=== PATIENT | male | born 1970 | race Caucasian/White ===

== ENCOUNTER → 2017-10-29 | Outpatient (CLI) | payer BC ==
--- NOTE | 2017-10-29 11:52 | ECHOS ---
STRESS ECHOCARDIOGRAM DATE OF SERVICE: 10/29/2017 INDICATIONS: Atrial fibrillation. MEDICATIONS: Metoprolol. BASELINE HEART RATE: 78 BASELINE BLOOD PRESSURE: 100/65 MAXIMUM HEART RATE: 160 MAXIMUM BLOOD PRESSURE: 148/60 85% MPHR: 149 100% MPHR: 175 METS: 12.1 MAXIMUM STAGE REACHED: IV TOTAL EXERCISE TIME: 10:30 CLINICAL INFORMATION: Baseline rhythm is sinus mechanism, rate of 78, normal axis and intervals. Normal electrocardiogram. Baseline blood pressure 100/65 mmHg. Patient exercised on Bakari protocol for 10 minutes 30 seconds reaching peak rate on 160 beats per minute, which is equal to 91% maximum predicted heart rate. Peak blood pressure 148/60 mmHg. The test was terminated secondary to fatigue. There was no chest pain. Electrocardiograph monitoring revealed no evidence of diagnostic ischemic ST deviation. Baseline echocardiogram revealed normal systolic function. At peak exercise, there was normal wall motion augmentation with no hypokinesis or dyskinesis. CONCLUSION: 1. Good exercise tolerance with normal electrocardiograph response to exercise. 2. Normal stress echocardiogram with no evidence of stress-induced ischemia. MMODL / IJN: [id number] / MTDD
== END | disposition home or self-care (01) ==
LOC: RADNMMAIN 09:43
PROVIDERS: ATTEND Family Medicine
DX: I48.91 Unspecified atrial fibrillation (principal)
CPT/HCPCS: 93017; 93350

== ENCOUNTER 2018-07-18 03:46 | Inpatient (IN) | payer BC ==
[2018-07-18] MEDS ORDERED: MIDAZOLAM 2 MG/2 ML VIAL IVP ONE (04:40)
[2018-07-18] MEDS ORDERED: LIDOCAINE 1% INJ 10MG/ML (20 ML MDV) SQ ONE (04:42)
[2018-07-18] MEDS ORDERED: fentaNYL (PF) 50 MCG/ML 2 ML AMP IV ONE (04:46)
[2018-07-18] MEDS ORDERED: IV FLUID CONTINUATION 950 ML IV ONE (04:47)
[2018-07-18] MEDS ORDERED: BIVALIRUDIN BOLUS 250 MG/50 ML IV ONE (04:55)
[2018-07-18] MEDS ORDERED: BIVALIRUDIN 250 MG in SODIUM CHLORIDE 0.9% 35 ML IV ONE (05:00)
[2018-07-18] MEDS ORDERED: IOPAMIDOL-370 125ML BTL INJ ONE (05:13)
[2018-07-18] MEDS ORDERED: BIVALIRUDIN 250 MG in SODIUM CHLORIDE 0.9% 50 ML IV ONE (05:33)
[2018-07-18] MEDS ORDERED: NITROGLYCERIN 1000MCG/10ML SYRINGE INTRACORON ONE (05:37)
[2018-07-18] MEDS ORDERED: niCARdipine Syringe (1,000 mcg/10 mL) INTRACORON ONE (05:37)
[2018-07-18] MEDS ORDERED: TICAGRELOR 90 MG TAB PO ONE (05:43)
[2018-07-18] MEDS ORDERED: IOPAMIDOL-370 50ML BTL INJ ONE (05:43)
[2018-07-18] MEDS ORDERED: IOPAMIDOL-370 100ML BTL INJ ONE (05:44)
[2018-07-18] MEDS ORDERED: MAG HYDROX/AL HYDROX/SIMETH 30 ML CUP PO PRN (05:52)
[2018-07-18] MEDS ORDERED: RX INFO: IV CONTRAST WAS GIVEN 1 EACH MISC MISCELLANE PRN (05:52)
[2018-07-18] MEDS ORDERED: ATROPINE SULFATE 0.1 MG/ML 10ML SYRINGE IV PRN (05:52)
[2018-07-18] MEDS ORDERED: NITROGLYCERIN SL TABS 0.4 MG TAB SUBLINGUAL PRN (05:52)
[2018-07-18] MEDS ORDERED: ZOLPIDEM 5 MG TAB PO PRN (05:52)
[2018-07-18] MEDS ORDERED: SODIUM CHLORIDE 0.9% 1,000 ML IV SCH (06:00)
--- NOTE | 2018-07-18 06:06 | P.CRDCN ---
History of Present Illness Consult date: 07/18/18 Chief complaint: Chest discomfort History of present illness: This is a 47-year-old gentleman who presented to the emergency room at [facility] with chest discomfort and was diagnosed with acute anterior ST elevation myocardial infarction. The patient was in his usual state of health until last night. He woke up from sleep at 2:00 after midnight complaining of chest discomfort as a pressure across her chest. No associated symptoms of shortness of breath, dizziness, sweating, or syncope. Because the chest discomfort was persistent he decided to go to the emergency room at [facility]. He continues to have a chest discomfort over there and it was about 6/10 in intensity. The EKG revealed sinus rhythm with a [address] segment elevation in the anterior leads. No reciprocal changes noted. Because of the ongoing chest discomfort and the ST changes the patient was transferred emergently to [facility] where he underwent a heart catheterization which revealed what it seems to be plaque rupture in the proximal left anterior descending artery with a large thrombus burden. I did perform an aspiration thrombectomy and I was able to extract significant amount of white clot from the LAD proximally. After that I did perform successful stenting of the LAD. By the end of the procedure, the patient's blood pressure has improved, the EKG changes improved, and the patient was chest pain-free. In terms of past medical history, the patient does have hypertension but he quit taking his metoprolol. 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 He is overall not very compliant. No history of diabetes. The patient does have significant history of smoking where he smoke one pack per day. Beside that he does have significant history of alcohol abuse and as a matter of fact last night he took a six pack of beers Past Medical History Additional Past Medical History / Comment(s): back pain History of Any Multi-Drug Resistant Organisms: None Reported Past Psychological History: No Psychological Hx Reported Smoking Status: Current every day smoker Past Alcohol Use History: Occasional Past Drug Use History: None Reported Medications and Allergies Home Medications Medication Instructions Recorded Confirmed Type Amoxicillin/Potassium Clav 1 tab PO Q12HR #20 tab 05/14/16 Rx [Augmentin 875-125 Tablet] Sulfamethox-Tmp 800-160Mg [Bactrim 2 each PO Q12HR #40 tab 05/14/16 Rx DS 800-160 mg] Allergies Allergy/AdvReac Type Severity Reaction Status Date / Time No Known Allergies Allergy Verified 05/14/16 21:55 Physical Exam Vitals: Intake and Output 07/17/18 07/17/18 07/18/18 14:59 22:59 06:59 Intake Total 35 Balance 35 Intake: IV 35 Other: Weight 102.058 kg - Constitutional General appearance: no acute distress - Respiratory Respiratory: bilateral: CTA - Cardiovascular Rhythm: regular Heart sounds: normal: S1, S2 Results Current Medications Generic Name Dose Route Start Last Admin Trade Name Freq PRN Reason Stop Dose Admin Al Hydroxide/Mg Hydroxide 30 ml 07/18/18 05:52 Maalox PO Q4HR PRN Heartburn Aspirin 81 mg 07/18/18 09:00 Aspirin PO DAILY [facility] Atorvastatin Calcium 80 mg 07/18/18 21:00 Lipitor PO HS [facility] Atropine Sulfate 0.5 mg 07/18/18 05:52 Atropine IV ONCE PRN Symptomatic Bradycardia Sodium Chloride 1,000 mls @ 100 mls/hr 07/18/18 06:00 Saline 0.9% IV 07/18/18 12:01 .Q10H [facility] Lisinopril 2.5 mg 07/18/18 09:00 Zestril PO DAILY [facility] Metoprolol Tartrate 25 mg 07/18/18 09:00 Lopressor PO BID [facility] Miscellaneous Information 1 each 07/18/18 05:52 Rx Info: Iv Contrast Was Given MISCELLANE 07/20/18 05:52 DAILY PRN Per Protocol Nitroglycerin 0.4 mg 07/18/18 05:52 Nitrostat SUBLINGUAL Q5M PRN Chest Pain Ticagrelor 90 mg 07/18/18 09:00 Brilinta PO BID [facility] Zolpidem Tartrate 5 mg 07/18/18 05:52 Ambien PO HS PRN Insomnia Intake and Output 07/17/18 07/17/18 07/18/18 14:59 22:59 06:59 Intake Total 35 Balance 35 Intake: IV 35 Other: Weight 102.058 kg Patient Weight 07/18/18 06:59 Weight 102.058 kg Assessment and Plan Assessment: Assessment #[address] elevation myocardial infarction #2 status post a stenting of the proximal LAD #3 significant history of smoking #4 history of alcohol abuse #5 noncompliance. Plan #1 dual antiplatelet therapy #2 high intensity statin #3 beta brinda as well as ANIL inhibitor #4 echocardiogram was Doppler #5 ICU admission #6 smoking cessation was discussed with him #7 follow-up with the patient. Thank you for allowing us participate in his care and we will continue following up with the patient
[2018-07-18 06:37] LABS: Glucose,Whole Blood 118 mg/dL (75-99)
--- NOTE | 2018-07-18 07:22 | CC ---
CARDIAC CATHETERIZATION REPORT DATE OF SERVICE: 07/18/2018 PERFORMING PHYSICIAN: Omer Melendez MD, Java Mobile Developer. PROCEDURE PERFORMED: 1. Selective right and left coronary angiogram. 2. Intravascular ultrasound IVUS of the left anterior descending artery. 3. An aspiration thrombectomy from the proximal left anterior descending artery. 4. Successful stenting of the proximal LAD using 5.0 x 18 mm bare metal stent with good angiographic results. 5. Left heart catheterization. 6. Left ventriculography. INDICATION: This is a pleasant 47-year-old gentleman with significant history of smoking, presented to the emergency room at [facility] with chest discomfort and the EKG showed acute anterior ST-elevation myocardial infarction. Because of that, an emergent heart catheterization was advised and the patient was transferred to [facility] for that. APPROACH: Right common femoral artery. COMPLICATION: None. LEVEL OF SEDATION: Moderate with sedation length of 67 minutes. PROCEDURE DESCRIPTION: After obtaining an informed consent, the patient was brought to the cardiac organic lab worker. The right common femoral artery was cannulated using micropuncture technique, the micropuncture wire passed easily, then I placed a 6-Romansh sheath in the right common femoral artery. After that, I did selective right and left coronary angiogram using JR4 and JL4 catheters. After that, I did intravascular ultrasound IVUS of the left anterior descending artery and also subsequently stenting of the LAD. Please see a separate paragraph for that. Left heart catheterization and left ventriculography were performed using 6-Romansh pigtail catheter. The procedure was completed without any complication. SELECTIVE CORONARY ANGIOGRAM: 1. The RCA is a large caliber vessel and it is a dominant vessel. The right coronary artery is angiographically normal. It distally bifurcates into PDA and PLV branches, both are angiographically normal. 2. The left main is angiographically normal. It bifurcates into the left circumflex, ramus intermedius and left anterior descending artery. 3. The left circumflex is a large caliber vessel. It is a nondominant vessel. The proximal circumflex is angiographically normal. The mid circumflex is normal and gives rise into a large OM branch which trifurcates into three sub branches. They are angiographically normal and the circumflex continued after that as a small to medium caliber vessel in the AV groove. 4. The ramus intermedius is a medium caliber vessel and seems to be angiographically normal. 5. The LAD: The LAD is a large caliber vessel. The proximal LAD has an area of haziness concerning for clot versus spontaneous dissection. There is a plaque also in the LAD proximally, appeared to be in the range of 70%. The mid LAD is angiographically normal and gives rise into a large diagonal branch which appeared to be angiographically normal and the LAD distally is angiographically normal as well. 6. Intravascular ultrasound and PCI of the LAD. Anticoagulation was initiated using Angiomax. Subsequently I did engage the left main using JL4 guiding catheter. I did wire the LAD using a run-through wire. After that, I did intravascular ultrasound IVUS of the LAD where I did manual pullback with the recording. The intravascular ultrasound showed large clot involving the proximal LAD and reaching almost the left circumflex coronary artery. We did also measure the lumen of the LAD, which was about 5 mm in diameter. At that point, I decided to do an aspiration thrombectomy of the LAD. 1. I advanced the export catheter and I was able to do two rounds of aspiration thrombectomy with the extraction of significant amount of white clot from the LAD proximally. After that, I did direct stenting of the LAD where I did deploy 5.0 x 18 mm bare-metal stent where the stent was positioned under fluoroscopy guidance and deployed under 12 atmospheres for 30 seconds. After that, I did an intravascular ultrasound again of the proximal LAD and I did make sure that the stent was well apposed to the wall. 2. At that point, the procedure and intervention was completed without any complication. The following angiogram showed good angiographic results. LEFT HEART CATHETERIZATION: The left ventricular end-diastolic pressure was 8 mmHg and no gradient was identified across the aortic valve. LEFT VENTRICULOGRAPHY: The left ventriculography was performed in the CHEEK projection and using a power injection. The left ventricular systolic function seems to be mildly impaired with EF between 45% to 50% with mild anterior hypokinesia. CONCLUSION: 1. Acute anterior ST-elevation myocardial infarction in this 47-year-old gentleman with significant history of smoking. 2. Plaque rupture with a large thrombus burden involving the proximal left anterior descending artery. 3. Successful stenting of the proximal left anterior descending artery using 5 mm x 18 mm bare-metal stent with good angiographic results. 4. No residual coronary artery disease involving the right coronary artery, left circumflex, or left main coronary artery. 5. Mildly impaired left ventricular function with ejection fraction between 45% to 50% with mild anterior hypokinesia. POSTPROCEDURE MANAGEMENT: 1. Dual anti-platelet therapy. 2. Aggressive cholesterol control. 3. Anti-ischemic medication. 4. An echocardiogram with Doppler to assess the EF. 5. Smoking cessation. 6. ICU admission. 7. Follow up with the patient. PARTH / KRISSY: [id number] /
--- NOTE | 2018-07-18 07:37 | LTR ---
DATE OF SERVICE: 07/18/2018 RE: Michael Perez Dear Dr. Mansfield; Mr. Michael Perez presented to the emergency room at [facility] with chest discomfort and was diagnosed with acute anterior ST-elevation myocardial infarction. He was transferred emergently to [facility] where he underwent an emergent heart catheterization and was found to have a plaque rupture and thrombus formation involving the proximal LAD. He underwent successful stenting of the LAD with good angiographic results. Thank you for allowing us with his care and please do not hesitate to call if you have any questions or concerns. Sincerely, MD PARTH Barraza / ORIONN: [id number] /
[2018-07-18] MEDS: METOPROLOL TARTRATE 25 MG TAB PO SCH ×2 (08:41→21:42)
[2018-07-18] MEDS: LISINOPRIL 2.5 MG TAB PO SCH (08:41)
[2018-07-18] MEDS: ASPIRIN 81 MG PO SCH (08:42)
[2018-07-18] MEDS: TICAGRELOR 90 MG TAB PO SCH ×2 (08:42→21:42)
--- NOTE | 2018-07-18 09:55 | ECHOF ---
Referral Reason:stemi MEASUREMENTS -------- HEIGHT: 157.5 cm WEIGHT: 102.1 kg BP: IVSd: 1.5 cm (0.6 - 1.1) LVIDd: 4.2 cm (3.9 - 5.3) LVPWd: 1.4 cm (0.6 - 1.1) IVSs: 2.0 cm LVIDs: 3.0 cm LVPWs: 1.5 cm LA Diam: 2.4 cm (2.7 - 3.8) Ao Diam: 3.7 cm (2.0 - 3.7) AV Cusp: 1.9 cm (1.5 - 2.6) LA Diam: 2.6 cm (2.7 - 3.8) MV EXCURSION: 21.866 mm (> 18.000) MV EF SLOPE: 91 mm/s (70 - 150) EPSS: 0.4 cm MV E Hubert: 0.57 m/s MV DecT: 233 ms MV A Hubert: 0.67 m/s MV E/A Ratio: 0.86 RAP: 5.00 mmHg RVSP: 35.57 mmHg FINDINGS -------- Sinus rhythm. This was a technically good study. The left ventricular size is normal. There is moderate concentric left ventricular hypertrophy. O verall left ventricular systolic function is low-normal with, an EF between 50 - 55 %. The right ventricle is normal in size. The left atrial size is normal. The right atrial size is normal. The aortic valve is trileaflet, and appears structurally normal. No aortic stenosis or regurgitation. Mild mitral regurgitation is present. Mild tricuspid regurgitation present. There is mild pulmonary hypertension. The right ventricular systolic pressure, as measured by Doppler, is 35.57mmHg. Trace/mild (physiologic) pulmonic regurgitation. The aortic root size is normal. There is no pericardial effusion. CONCLUSIONS -------- 1. The left ventricular size is normal. 2. There is moderate concentric left ventricular hypertrophy. 3. Overall left ventricular systolic function is low-normal with, an EF between 50 - 55 %. 4. The right ventricle is normal in size. 5. The left atrial size is normal. 6. The right atrial size is normal. 7. The aortic valve is trileaflet, and appears structurally normal. No aortic stenosis or regurgitati on. 8. Mild mitral regurgitation is present. 9. Mild tricuspid regurgitation present. 10. There is mild pulmonary hypertension. 11. The right ventricular systolic pressure, as measured by Doppler, is 35.57mmHg. 12. Trace/mild (physiologic) pulmonic regurgitation. 13. The aortic root size is normal. 14. There is no pericardial effusion. LIFE SCIENCE RESEARCH ASSISTANT: Yesika Somers RDCS
[2018-07-18 11:02] VITALS: BMI 31.4
[2018-07-18] MEDS: ATORVASTATIN 80 MG TAB PO SCH (21:42)
[2018-07-18] MEDS ORDERED: NICOTINE POLACRILEX 2 MG GUM BUCCAL PRN (22:55)
--- NOTE | 2018-07-18 23:25 | HP ---
HISTORY AND PHYSICAL DATE OF ADMISSION: 07/18/2018 DATE OF SERVICE: 07/18/2018. PRESENTING COMPLAINT: Cough, chest pain. HISTORY OF PRESENTING COMPLAINT: This is a pleasant 51-year-old patient who follows with Dr. Mansfield. The patient yesterday came back home from work. Smokes some cigarettes. Had a few beers. Had supper and went and sat on the couch, watching television. Normally gets around 2 o'clock in the morning to go to bed. When he noticed having chest pressure and then pressure and pain going down the left arm. The patient fell out of sorts. Did not feel well. Just felt tired and run down. The patient presented to [facility] ER and was diagnosed to have acute anterior ST-elevation myocardial infarction. The patient was then transferred emergently to [facility] where he underwent cardiac cath and the patient found to have a plaque rupture in the proximal LAD with the large thrombus burden. The patient did have aspiration thrombectomy and stenting of the LAD was carried out. The patient is currently resting in the ICU. and two sons are present. REVIEW OF SYSTEM: CONSTITUTIONAL: The patient has been feeling a bit tired for some time. HEENT none. RESPIRATORY: None. CARDIOVASCULAR as above. GASTROINTESTINAL: Heartburn. GENITOURINARY: None. MUSCULOSKELETAL: None. DERMATOLOGICAL: None. HEMATOLOGICAL: None. LYMPHATICS: None. NEUROLOGICAL: None. PAST MEDICAL HISTORY: Atrial fibrillation, hypertension, back pain. PAST SURGICAL HISTORY: None. SOCIAL HISTORY: Smoked 2 packs a day. Few beers a day. 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 FAMILY HISTORY: Reviewed, noncontributory to presentation. HOME MEDICATIONS: Toprol-XL 25 mg a day. ALLERGIES: None. PHYSICAL EXAMINATION: VITAL SIGNS: Temperature 98.1, pulse 67, respirations 16, blood pressure 130/95, pulse ox 93 percent on room air. GENERAL APPEARANCE: Well built, BMI 31.4. Lying in bed, comfortable. EYES: Pupils are equal. Oral cavity normal. HEENT: External appearance of nose and ears normal. Oral cavity normal. NECK: JVD not raised. Mass not palpable. RESPIRATORY: Effort normal. LUNGS: Slightly decreased breath sounds. CARDIOVASCULAR: 1st and 2nd sounds normal. No edema. ABDOMEN: Soft, nontender. Liver and spleen not palpable. LYMPHATICS: No lymph nodes palpable in the neck and axillae. PSYCHIATRY: Alert and oriented x3. Mood and affect normal. NEUROLOGICAL: Pupils equal. Cranial nerves grossly intact. Power and sensation grossly intact. INVESTIGATIONS: Troponin 1.8, 3.2. EKG tracing from [facility] had reported ST-elevation myocardial infarction. 2D echocardiogram shows EF of 50-55 percent. ASSESSMENT: 1. Acute ST-elevation myocardial infarction followed by clot extraction and stent to the LAD. 2. Obesity BMI 31.4. 3. Chronic nicotine dependence, patient is a cigarette smoker. PLAN: Patient is currently on aspirin, Lipitor, Zestril, Lopressor, Aldactone, Brilinta, Ambien. Care was discussed at length with the patient and . Many questions were answered. They had some questions about interventional will be directed to the weapons officer. Smoke cessation: This also discussed with the patient. The patient will be given a nicotine patch. More than 3 minutes was spent on this aspect of the case. Copy to Dr. Mansfield. PARTH / IJN: [id number] /
[2018-07-19] MEDS: NICOTINE 21MG/24HR PATCH TRANSDERM SCH ×2 (04:02→16:37)
[2018-07-19 05:23] LABS: Basophils # (A) 0.1 k/uL (0-0.2); Basophils % (A) 1 %; Eosinophils # (A) 0.4 k/uL (0-0.7); Eosinophils % (A) 3 %; HCT 51.4 % (39.0-53.0); HGB 16.8 gm/dL (13.0-17.5); Lymphocytes # (A) 2.5 k/uL (1.0-4.8); Lymphocytes % (A) 23 %; MCH 30.8 pg (25.0-35.0); MCHC 32.7 g/dL (31.0-37.0); MCV 94.1 fL (80.0-100.0); Mean Platelet Volume 7.1; Monocytes # (A) 0.9 k/uL (0-1.0); Monocytes % (A) 9 %; Neutrophils # (A) 6.9 k/uL (1.3-7.7); Neutrophils % (A) 62 %; Platelet Count 218 k/uL (150-450); RBC 5.46 m/uL (4.30-5.90); RDW 12.8 % (11.5-15.5)
[2018-07-19 05:41] LABS: Anion Gap 6 mmol/L; Blood Urea Nitrogen 16 mg/dL (9-20); Carbon Dioxide 22 mmol/L (22-30); Chloride 108 mmol/L (98-107); Cholesterol 167 mg/dL (<200); Glucose 106 mg/dL (74-99); HDL Cholesterol 48 mg/dL (40-60); LDL Cholesterol,Calculated 100 mg/dL (0-99); Potassium 4.9 mmol/L (3.5-5.1); Sodium 136 mmol/L (137-145); Triglycerides 96 mg/dL (<150)
[2018-07-19] MEDS: SPIRONOLACTONE 25 MG TAB PO SCH (08:20)
[2018-07-19] MEDS: METOPROLOL TARTRATE 25 MG TAB PO SCH ×2 (08:20→21:18)
[2018-07-19] MEDS: LISINOPRIL 2.5 MG TAB PO SCH (08:20)
[2018-07-19] MEDS: TICAGRELOR 90 MG TAB PO SCH ×2 (08:20→21:18)
[2018-07-19] MEDS: ASPIRIN 81 MG PO SCH (08:20)
--- NOTE | 2018-07-19 10:53 | PN ---
PROGRESS NOTE Mr. Perez is 47-year-old male who presented with an acute episode of chest discomfort, underwent cardiac catheterization and stenting of his proximal LAD. He is doing well this morning. He has mild dyspnea. No chest pain. No dizziness. No palpitation. No nausea. He continues to be on aspirin once a day, Brilinta 90 mg twice a day, Aldactone 25 mg daily, metoprolol tartrate 25 mg twice a day, lisinopril 2.5 mg daily, Lipitor 80 mg daily. PHYSICAL EXAMINATION: Blood pressure 110/70 with a heart rate in the 80s. LUNGS: Clear. HEART: Regular rate and rhythm S1, S2. No S3. No rub. ABDOMEN: Soft, nontender. Right groin no hematoma. Echocardiogram performed revealed ejection fraction of 50% to 55% with mild mitral and tricuspid regurgitation. EKG revealed no acute changes. LAB DATA: Peak troponin 3.25, BUN and creatinine 16 and 0.9, potassium 4.9, hemoglobin of 16.8. His LDL is 100. IMPRESSION: 1. Status post anterior myocardial infarction and stenting of the LAD. 2. Mild hyperlipidemia. RECOMMENDATIONS: We will continue present therapy. He has mild dyspnea that could be related to the Brilinta, but that is unclear. We will continue the present therapy. Increase his level of activity. The patient has a prior history of paroxysmal atrial fibrillation related to his alcohol intake, but he has not been drinking recently. He had a prior history of smoking. If he is stable, he should be able to be transferred to the telemetry floor later on. PARTH / KRISSY: [id number] /
--- NOTE | 2018-07-19 17:26 | PN ---
PROGRESS NOTE DATE OF SERVICE: 07/19/2018. PRESENTING COMPLAINT: Acute myocardial infarction. INTERVAL HISTORY: This is a patient presented with acute ST-elevation myocardial infarction followed by stent to the LAD. Doing better. Has been up in the hallway. No chest pain. No shortness of breath. Tolerating his diet. No arrhythmias present. REVIEW OF SYSTEMS: Done for constitutional, cardiovascular, GI, pulmonary; relevant findings as above. CURRENT MEDICATIONS: Reviewed. PHYSICAL EXAMINATION: VITAL SIGNS: Temperature 98.4, pulse 74, respiratory 18, blood pressure 108/74, pulse ox 95% on room air. GENERAL APPEARANCE: Lying in bed, comfortable. EYES: Pupils equal. Conjunctivae normal. HEENT: External appearance of nose and ears normal. Oral cavity normal. NECK: JVD not raised. Mass not palpable. RESPIRATORY: Effort normal. LUNGS: Slightly decreased breath sounds. CARDIOVASCULAR: 1st and 2nd sounds normal. No edema. ABDOMEN: Soft, nontender. Liver and spleen not palpable. PSYCHIATRY: Alert and oriented x3. Mood and affect normal. INVESTIGATIONS: White count 11, hemoglobin 16.8 potassium 4.9, LDL 100. ASSESSMENT: 1. Acute ST-elevation myocardial infarction followed by clot extraction, stent to the LAD. 2. Obesity BMI 31.4. 3. Chronic nicotine dependence, patient is a cigarette smoker. 4. Paroxysmal atrial fibrillation, currently in sinus rhythm. 5. Hypertensive heart disease. PLAN: Continue current medication and treatment plan and encouraged the patient to ambulate in the hallway. Care was discussed with the patient and . Continue. MMODL / IJN: [id number] /
[2018-07-19] MEDS: ATORVASTATIN 80 MG TAB PO SCH (21:18)
[2018-07-20 06:34] LABS: Anion Gap 7 mmol/L; Blood Urea Nitrogen 21 mg/dL (9-20); Calcium 9.1 mg/dL (8.4-10.2); Carbon Dioxide 21 mmol/L (22-30); Chloride 107 mmol/L (98-107); Glucose 104 mg/dL (74-99); Potassium 5.1 mmol/L (3.5-5.1); Sodium 135 mmol/L (137-145)
[2018-07-20] MEDS: NICOTINE 21MG/24HR PATCH TRANSDERM SCH (09:34)
[2018-07-20] MEDS: ASPIRIN 81 MG PO SCH (09:34)
[2018-07-20] MEDS: TICAGRELOR 90 MG TAB PO SCH (09:34)
[2018-07-20] MEDS: LISINOPRIL 2.5 MG TAB PO SCH (09:34)
[2018-07-20] MEDS: METOPROLOL TARTRATE 25 MG TAB PO SCH (09:34)
[2018-07-20] MEDS: SPIRONOLACTONE 25 MG TAB PO SCH (09:34)
--- NOTE | 2018-07-20 10:41 | PN ---
PROGRESS NOTE Mr. Perez is a 47-year-old male who presented to the hospital with symptoms of chest discomfort, underwent a percutaneous revascularization proximal LAD had evidence of myocardial infarction. He is feeling well this morning. His breathing is stable. He has been ambulating without difficulty denying any dizziness or palpitation. He denies any nausea or vomiting. He continues to be in sinus mechanism. On aspirin once a day, Brilinta 90 mg twice a day, metoprolol tartrate 25 mg twice a day, lisinopril 2.5 mg daily, spironolactone 25 mg daily and Lipitor 80 mg daily. PHYSICAL EXAMINATION: Blood pressure 112/60 with a heart in 60s. LUNGS: Clear. Regular rate and rhythm S1, S2. No S3. No rub. ABDOMEN: Soft nontender. EXTREMITIES: No edema. LAB DATA: BUN and creatinine 21 and 0.92, potassium 5.1. IMPRESSION: 1. Status post acute myocardial infarction involving the LAD, status post stenting of the LAD. 2. Prior history of smoking. 3. Hyperlipidemia. RECOMMENDATIONS: Patient will be discharged home today and follow up with Dr. Melendez in 1 week. The importance of smoking and alcohol cessation were discussed with the patient who is in full understanding and agreement. MMODL / IJN: [id number] /
[2018-07-20 11:44] VITALS: RESP 14
[2018-07-20 13:07] VITALS: BP 108/65; PULSE 72; TEMP 97.9
--- NOTE | 2018-07-20 22:26 | DS ---
DISCHARGE SUMMARY . DATE OF ADMISSION: 07/18/2018. DATE OF DISCHARGE: 07/20/2018. FINAL DIAGNOSES: 1. Acute ST-elevation myocardial infarction clot extraction, stent to the LAD. 2. Obesity BMI 31.4. 3. Chronic nicotine dependence. Patient is a cigarette smoker. 4. Paroxysmal atrial fibrillation, currently in sinus rhythm. 5. Hypertensive heart disease. HOSPITAL COURSE: This patient was transferred from [facility] for an acute ST-elevation myocardial infarction, had intervention done to the LAD. More details in Dr. Melendez's notes. 2D echo showed preserved LV function and LDL was 100. The patient was counseled about smoking and alcohol. Doing much better. Up and about. No cardiac symptoms. PHYSICAL EXAMINATION: VITAL SIGNS: Temperature 97.9, pulse 72, respiratory 14, blood pressure 108/65, pulse ox 94% on room air. Lungs slightly decreased breath sounds. Cardiovascular: 1st and 2nd sounds normal. LABS: BUN 21, creatinine 0.92. LDL 100. CONSULTATION: cloth cutter Dr. Melendez. HOME GO MEDICATIONS: 1. Aspirin 81 mg a day. 2. Lipitor 80 mg q.h.s. 3. Zestril 2.5 mg a day. 4. Lopressor 25 mg p.o. b.i.d. 5. Nicotine 21 mg patch. 6. Nitrostat 0.4 sublingual q.5 p.r.n. 7. Aldactone 25 mg a day. 8. Brilinta 90 mg p.o. b.i.d. FOLLOW UP: Dr. Melendez in 1 week, follow up with Dr. Mansfield in 1 week. The patient is counseled about smoking and alcohol. Copy to Dr. Mansfield. MMODL / IJN: [id number] /
== END 2018-07-20 16:22 | disposition home or self-care (01) | DRG 249 ==
LOC: 2SICU 04:15 → 3SCARD 07-19 10:55
PROVIDERS: ADMIT Hospitalist; ATTEND Hospitalist
PROC: 02C03ZZ Extirpation of Matter from Coronary Artery, One Artery, Percutaneous Approach (ICD-10-PCS; 2018-07-18)
PROC: 4A023N7 Measurement of Cardiac Sampling and Pressure, Left Heart, Percutaneous Approach (ICD-10-PCS; principal; 2018-07-18 04:42)
PROC: 02703DZ Dilation of Coronary Artery, One Artery with Intraluminal Device, Percutaneous Approach (ICD-10-PCS; 2018-07-18 04:42)
PROC: B2111ZZ Fluoroscopy of Multiple Coronary Arteries using Low Osmolar Contrast (ICD-10-PCS; 2018-07-18 04:42)
PROC: B2151ZZ Fluoroscopy of Left Heart using Low Osmolar Contrast (ICD-10-PCS; 2018-07-18 04:42)
DX: I21.09 ST elevation (STEMI) myocardial infarction involving other coronary artery of anterior wall (principal); I11.9 Hypertensive heart disease without heart failure; F17.210 Nicotine dependence, cigarettes, uncomplicated; E66.9 Obesity, unspecified; E78.5 Hyperlipidemia, unspecified; I48.0 Paroxysmal atrial fibrillation; Z68.31 Body mass index [BMI] 31.0-31.9, adult; Z79.82 Long term (current) use of aspirin; Z79.899 Other long term (current) drug therapy; Z91.19 Patient's noncompliance with other medical treatment and regimen; T44.7X6A Underdosing of beta-adrenoreceptor antagonists, initial encounter; Z91.128 Patient's intentional underdosing of medication regimen for other reason; Z71.41 Alcohol abuse counseling and surveillance of alcoholic; Z71.6 Tobacco abuse counseling; I25.10 Atherosclerotic heart disease of native coronary artery without angina pectoris; I25.83 Coronary atherosclerosis due to lipid rich plaque; F10.10 Alcohol abuse, uncomplicated; M54.9 Dorsalgia, unspecified
CPT/HCPCS: 80048; 80061; 84132; 84484; 85025; 93306

== ENCOUNTER → 2018-12-25 | Outpatient (CLI) | payer BC ==
--- NOTE | 2018-12-26 08:42 | US ---
EXAMINATION TYPE: US venous doppler duplex LE RT DATE OF EXAM: 12/25/2018 6:05 PM COMPARISON: US 2017 CLINICAL HISTORY: R60.0 edema of lower extremity. Swelling right leg x 1 day. Patient injured right k nee 1 week ago. Hx superficial thrombosis right leg. Patient on blood thinners. SIDE PERFORMED: Right TECHNIQUE: The lower extremity deep venous system is examined utilizing real time linear array sonog rizwan with graded compression, doppler sonography and color-flow sonography. VESSELS IMAGED: External Iliac Vein (EIV) Common Femoral Vein Deep Femoral Vein Greater Saphenous Vein * Femoral Vein Popliteal Vein Small Saphenous Vein * Proximal Calf Veins (* superficial vessels) Right Leg: No evidence of DVT in the right lower extremity. IMPRESSION: 1. No diagnostic evidence of DVT as visualized.
== END ==
LOC: RADUSMAIN 17:06
PROVIDERS: ATTEND Family Medicine
DX: R60.0 Localized edema (principal)

== ENCOUNTER → 2019-01-23 | Outpatient (CLI) | payer BC ==
--- NOTE | 2019-01-28 14:59 | P.ARTDOP ---
Arterial Doppler LOWER EXTREMITY ARTERIAL DOPPLER: DATE OF SERVICE: 01/23/2019 Reason for study: Bilateral leg pain. Doppler waveforms: Multiphasic bilaterally throughout. Pulse volume recording: []. Pressure gradients: None. Ankle-brachial indices: Greater than 1 bilaterally. Toe pressures: [] on the right, [] on the left Impression: Normal study.
== END | disposition home or self-care (01) ==
LOC: RADUSWWP 13:47
PROVIDERS: ATTEND Family Medicine
DX: I73.9 Peripheral vascular disease, unspecified (principal)
CPT/HCPCS: 93922

== ENCOUNTER → 2019-05-12 | Outpatient (CLI) | payer BC ==
--- NOTE | 2019-05-12 14:41 | P.SLEEP ---
History of Present Illness H&P Date: 05/12/19 Chief Complaint: Sleep apnea This is a 48-year-old male patient, who was referred to me for further advice regarding BHARATH treatment. The patient was recently involved in an acute myocardial infarction. He is a chronic smoker. He underwent cardiac catheterization and stenting by Dr. Lujan. Following that, as the patient was visiting his basis factors, sleep apnea was considered by his primary care physician and the patient underwent a home sleep study through a mobile Home study units. This study apparently was not absolutely successful. Nevertheless, giving him the benefit of the doubt, the patient was given an APAP unit to try at home. He was unable to use it in a compliant fashion and ultimately the patient quit the treatment. At that point, he went back to his primary care physician and based on the initial risk guidelines requirements for CPAP use regarding obstructive sleep apnea, he failed to demonstrate compliancy and he was referred to me for further advice. Clinically, the patient admits to snore loudly. His been. [place] various family members including his . However, his sleep is not fragmented. He goes to bed at around 9 PM and he gets up between 3:30 to 4:30 AM in the morning. He averages around 6-7 hours of sleep per night. It takes a few minutes to fall asleep. In general he feels a bit fatigued and tired. Nevertheless, he has no difficulties with attention, memory, concentration, anxiety or depression. He denies waking up gasping for air or choking sensation. No nocturia. No grinding of the teeth. No sleepwalking or sleep talking. No dry mouth. No panic attacks. No palpitations. No heartburn. No nocturnal angina. He has gained a total of 20 pounds over the past 5 years. He can't recall that 5 years ago used to weigh 205 and currently is up to 231. He wakes up on Kathy is in the middle of the night. He has had previous episodes of sleep paralysis however this has not been a common occurrence. No previous history of motor vehicle accident because of feeling drowsy or sleepy. He has veered Off the road on one instance because of feeling drowsy and sleepy. His current upper score is at 13. He drinks 2-3 beers at nighttime. No restlessness in lower extremities. No personal or family history of obstructive sleep apnea. No sleep talking. No sleepwalking. No sleep eating disorder. Review of Systems Constitutional: Reports daytime sleepiness, Reports fatigue Eyes: denies as per HPI, denies blurred vision, denies bulging eye, denies decreased vision, denies diplopia, denies discharge, denies dry eye, denies irritation, denies itching, denies pain, denies photophobia, denies loss of peripheral vision, denies loss of vision, denies tunnel vision/blind spots Ears: deny: decreased hearing, ear discharge, earache, tinnitus Ears, nose, mouth and throat: Reports as per HPI (the patient has snoring), Denies headache, Denies sore throat Breasts: absent: as per HPI, gynecomastia Cardiovascular: Denies chest pain, Denies shortness of breath Respiratory: Reports as per HPI Gastrointestinal: Reports as per HPI Genitourinary: Reports as per HPI Musculoskeletal: Reports as per HPI Musculoskeletal: absent: ankle pain, ankle stiffness, ankle swelling, as per HPI, elbow pain, elbow stiffness, elbow swelling, foot pain, foot stiffness, foot swelling, hand pain, hand stiffness, hand swelling, hip pain, hip stiffness, hip swelling, knee pain, knee stiffness, knee swelling, shoulder pain, shoulder stiffness, shoulder swelling, wrist pain, wrist stiffness, wrist swelling Integumentary: Denies pruritus, Denies rash Neurological: Denies numbness, Denies weakness Psychiatric: Reports as per HPI, Reports sleep disturbances Endocrine: Reports as per HPI, Reports fatigue Hematologic/Lymphatic: Reports as per HPI Allergic/Immunologic: Reports as per HPI Past Medical History Past Medical History: Atrial Fibrillation, Hypertension Additional Past Medical History / Comment(s): back pain, hypertension, coronary artery disease, recent acute myocardial infarction History of Any Multi-Drug Resistant Organisms: None Reported Past Surgical History: No Surgical Hx Reported Additional Past Surgical History / Comment(s): Cardiac catheterization post NE insertion of a coronary stent in the LAD Past Anesthesia/Blood Transfusion Reactions: No Reported Reaction Smoking Status: Current every day smoker (The patient is a chronic smoker smokes up to one pack of sick is today.) Past Alcohol Use History: Daily (He drinks 4 beers on a daily basis) - Past Family History Father Family Medical History: Chest Pain / Angina, Coronary Artery Disease (CAD) Medications and Allergies Home Medications Medication Instructions Recorded Confirmed Type Aspirin 81 mg PO DAILY #0 chew 07/20/18 Rx Atorvastatin [Lipitor] 80 mg PO HS #90 tab 07/20/18 Rx Lisinopril [Zestril] 2.5 mg PO DAILY #90 tab 07/20/18 Rx Metoprolol Tartrate [Lopressor] 25 mg PO BID #180 tab 07/20/18 Rx Nicotine 21Mg/24Hr Patch [Habitrol] 1 patch TRANSDERM DAILY #30 patch 07/20/18 Rx Nitroglycerin Sl Tabs [Nitrostat] 0.4 mg SUBLINGUAL Q5M PRN #25 tab 07/20/18 Rx Spironolactone [Aldactone] 25 mg PO DAILY #90 tab 07/20/18 Rx Ticagrelor [Brilinta] 90 mg PO BID #60 tab 07/20/18 Rx Allergies Allergy/AdvReac Type Severity Reaction Status Date / Time No Known Allergies Allergy Verified 07/18/18 09:11 Physical Exam Vitals: BP is OF 581, PULSE IS 96, RESPIRATIONS 16, TEMPERATURE 90.4, SATURATION 94% ON ROOM AIR, WEIGHT IS 231, HEIGHT IS 510 AND NECK SIZE IS 16-1/2 INCHES WITH A PULSE OX OF 94% ON ROOM AIR The patient appeared well nourished and normally developed. Vital signs as documented. Head exam is unremarkable. No scleral icterus or corneal arcus noted. Neck is without jugular venous distension, thyromegaly, or carotid bruits. Carotid upstrokes are brisk bilaterally. Lungs are clear to auscultation and percussion. Cardiac exam reveals the PMI to be normally sized and situated. Rhythm is regular. First and second heart sounds normal. No murmurs, rubs or gallops. Abdominal exam reveals normal bowel sounds, no masses, no organomegaly and no aortic enlargement. Extremities are nonedematous and both femoral and pedal pulses are normal.Examination of the skin revealed no evidence of significant rashes, suspicious appearing nevi or other concerning lesions. Neurologically is awake and alert and there is no focal neurological deficit Assessment and Plan Plan: 1 obstructive sleep apnea. The patient was diagnosed having BHARATH based on a home sleep study and according to him the study was not optimal as the patient wasn't able to sleep and keeps a monitor on throughout the night. He was given the benefit of the doubt and he was offered an APAP to which she hasn't been able to comply. The patient is coming in for further advice 2 loud snoring 3 hypersomnia with an [place] score of 13 4 hypertension 5 smoker Plan Obviously, this patient has features of obstructive sleep apnea. He was diagn osed having BHARATH based on home sleep study testing and he was given an APAP. He wasn't able to utilize APAP. Note that the patient did not have the proper education and the proper follow-up in typically follows after APAP treatment. In any rate, I think it's reasonable to do a another home sleep study testing to assess the presence of the severity of sleep apnea and decide whether treatment is needed. If treatment is needed, we'll talk about different options including CPAP, appliances an alternative surgical and nonsurgical treatments for BHARATH treatment. Decision to treat this patient will largely depend on the extent and the severity of his disease. Advised losing weight. Advise sleeping on his side. Advise avoiding alcohol drinking around 4 hours prior to going to sleep. He is to limit this sleep hygiene. Smoking cessation counseling was done. See me back here in the office after completion of the home sleep study testing. Sleep Note - Sleep Data Previous Sleep Study: Yes Previous Sleep Study Location: Home sleep study testing through an outside company PAP Device: AutoPAP Mask: Unconsicious Removal Dryness: Dry Mouth w/Nasal Mask - Sleep Note Sleep Note: Temperature: Pulse Rate: Respiratory Rate: Blood Pressure: SpO2: Height: Weight: BMI: Neck Circumference:
== END | disposition home or self-care (01) ==
LOC: SLEEP 13:37
PROVIDERS: ATTEND Internal Medicine Critical Care Medicine
DX: G47.33 Obstructive sleep apnea (adult) (pediatric) (principal); F17.200 Nicotine dependence, unspecified, uncomplicated; I10 Essential (primary) hypertension; I25.2 Old myocardial infarction; Z95.818 Presence of other cardiac implants and grafts; Z79.82 Long term (current) use of aspirin; Z79.899 Other long term (current) drug therapy
CPT/HCPCS: 99211

== ENCOUNTER 2021-03-10 19:10 | Emergency (ER) | payer BC, OTHER ==
[2021-03-10 19:22] VITALS: RESP 18; TEMP 98.1
[2021-03-10] MEDS ORDERED: FLUORESCEIN STRIPS 1 MG STRIP LEFT EYE ONE (19:31)
[2021-03-10] MEDS ORDERED: PROPARACAINE 0.5% OPHTH DROPS 15 ML BTL LEFT EYE STA (19:31)
[2021-03-10] MEDS ORDERED: ACET/COD 300 MG/30 MG STARTER PACK 6 TAB BTL PO STA (19:53)
--- NOTE | 2021-03-10 19:56 | ED ---
Eye Problem HPI - General Chief complaint: Eye Problems Stated complaint: IHS Lt Eye Injury Time Seen by Provider: 03/10/21 19:29 Source: patient Mode of arrival: ambulatory Limitations: no limitations - History of Present Illness Initial comments: 50-year-old male presents to the emergency room with a chief complaint of left eye injury. 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 States he recently had one about one week ago in his right eye but now it occurred in the left eye. States he was g rinding at work today and believes a possible foreign body could've went in his eye. He does wear safety glasses with his tetanus is up-to-date. States there is pain with blinking with mild blurry vision. Denies any pain with extraocular movements or periorbital erythema. He does report excessive clear tearing. Also reports eye redness. Does not wear eye contacts. - Related Data Previous Rx's Medication Instructions Recorded Aspirin 81 mg PO DAILY #0 chew 07/20/18 Atorvastatin [Lipitor] 80 mg PO HS #90 tab 07/20/18 Metoprolol Tartrate [Lopressor] 25 mg PO BID #180 tab 07/20/18 Nicotine 21Mg/24Hr Patch [Habitrol] 1 patch TRANSDERM DAILY #30 patch 07/20/18 Nitroglycerin Sl Tabs [Nitrostat] 0.4 mg SUBLINGUAL Q5M PRN #25 tab 07/20/18 Spironolactone [Aldactone] 25 mg PO DAILY #90 tab 07/20/18 Ticagrelor [Brilinta] 90 mg PO BID #60 tab 07/20/18 lisinopriL [Zestril] 2.5 mg PO DAILY #90 tab 07/20/18 Ofloxacin 0.3% Ophth Soln [Ocuflox 10 drops LEFT EAR BID #1 bottle 03/10/21 Ophth Soln] Allergies Allergy/AdvReac Type Severity Reaction Status Date / Time No Known Allergies Allergy Verified 03/10/21 19:19 Review of Systems ROS Statement: Those systems with pertinent positive or pertinent negative responses have been documented in the HPI. ROS Other: All systems not noted in ROS Statement are negative. Past Medical History Past Medical History: Atrial Fibrillation, Hypertension Additional Past Medical History / Comment(s): back pain, hypertension, coronary artery disease, recent acute myocardial infarction History of Any Multi-Drug Resistant Organisms: None Reported Past Surgical History: Heart Catheterization With Stent Additional Past Surgical History / Comment(s): Cardiac catheterization post ID insertion of a coronary stent in the LAD Past Anesthesia/Blood Transfusion Reactions: No Reported Reaction Past Psychological History: No Psychological Hx Reported Smoking Status: Current every day smoker Past Alcohol Use History: Daily Past Drug Use History: Marijuana - Past Family History Father Family Medical History: Chest Pain / Angina, Coronary Artery Disease (CAD) General Exam Limitations: no limitations General appearance: alert, in no apparent distress Head exam: Present: atraumatic, normocephalic, normal inspection Eye exam: Present: PERRL, EOMI, conjunctival injection (Left eye with clear watery discharge). Absent: normal appearance (Foreign body noted in the middle of the pupil), other (Negative Ugo sign.) Pupils: Present: normal accommodation ENT exam: Present: normal exam, normal oropharynx, mucous membranes moist Neck exam: Present: normal inspection, full ROM. Absent: tenderness, lymphadenopathy Respiratory exam: Present: normal lung sounds bilaterally. Absent: respiratory distress, wheezes Cardiovascular Exam: Present: regular rate, normal rhythm, normal heart sounds Extremities exam: Present: normal inspection, full ROM, normal capillary refill. Absent: tenderness Back exam: Present: normal inspection, full ROM. Absent: tenderness Neurological exam: Present: alert, oriented X3 Psychiatric exam: Present: normal affect, normal mood Skin exam: Present: warm, dry, intact, normal color Course Vital Signs 03/10/21 19:19 Temperature 98.1 F Pulse Rate 83 Respiratory 18 Rate Blood Pressure 110/69 O2 Sat by Pulse 100 Oximetry Procedures - Forgein Body Removal Eye Site: Left Anesthetic Used: Proparacaine Eye Exam Technique: Mckeon Lamp Foreign Body Suspected: Metal Forgein Body Removal Technique: Cotton Swab, [place] Remaining Debris: No Patient Tolerated: no complications Medical Decision Making - Medical Decision Making 50-year-old male presents to emergency department with a chief complaint of left eye pain. On physical examination and was able to detect a foreign body in the middle of the pupil. This was removed with ulnar brush and a Q-tip. Patient tolerated procedure well. This was anesthetized with proparacaine prior to procedures. Fluorescein stain is unremarkable. He will be discharged with Tylenol 3 for symptom medical he. We'll also given a prescription for ofloxacin ophthalmic solution. Return parameters were thoroughly discussed with patient was understanding and agreeable. Case discussed with physician. Disposition Clinical Impression: Foreign body of left eye Disposition: HOME SELF-CARE Condition: Stable Instructions (If sedation given, give patient instructions): Eye Foreign Body (ED) Additional Instructions: Please return to the Emergency Department if symptoms worsen or any other concerns. Prescriptions: Ofloxacin 0.3% Ophth Soln [Ocuflox Ophth Soln] 10 drops LEFT EAR BID #1 bottle Is patient prescribed a controlled substance at d/c from ED?: No Referrals: Tl Mansfield MD [Primary Care Provider] - 1-2 days Time of Disposition: 19:56
[2021-03-10 20:38] VITALS: BP 115/80; PULSE 85
== END 2021-03-10 20:28 | disposition home or self-care (01) ==
LOC: EC 19:10
DX: T15.82XA Foreign body in other and multiple parts of external eye, left eye, initial encounter (principal); I48.91 Unspecified atrial fibrillation; I10 Essential (primary) hypertension; Z95.5 Presence of coronary angioplasty implant and graft; F17.200 Nicotine dependence, unspecified, uncomplicated; F12.90 Cannabis use, unspecified, uncomplicated; I25.10 Atherosclerotic heart disease of native coronary artery without angina pectoris; I25.2 Old myocardial infarction; W45.8XXA Other foreign body or object entering through skin, initial encounter; Y99.0 Civilian activity done for income or pay
CPT/HCPCS: 65205; 99283

== ENCOUNTER → 2021-10-04 | Outpatient (CLI) | payer BC ==
--- NOTE | 2021-10-04 14:38 | US ---
EXAMINATION TYPE: US venous doppler duplex LE LT DATE OF EXAM: 10/04/2021 2:21 PM COMPARISON: NONE CLINICAL HISTORY: LLE M79.662. Left lower extremity pain SIDE PERFORMED: Left TECHNIQUE: The lower extremity deep venous system is examined utilizing real time linear array sonog rizwan with graded compression, doppler sonography and color-flow sonography. VESSELS IMAGED: Common Femoral Vein Deep Femoral Vein Greater Saphenous Vein * Femoral Vein Popliteal Vein Small Saphenous Vein * Proximal Calf Veins (* superficial vessels) Left Leg: Negative for DVT IMPRESSION: 1. Left lower extremity ultrasound negative for deep venous thrombosis.
== END | disposition home or self-care (01) ==
LOC: RADUSWWP 13:57
PROVIDERS: ATTEND Internal Medicine Interventional Cardiology
DX: M79.662 Pain in left lower leg (principal)

== ENCOUNTER → 2023-01-09 | Outpatient (CLI) | payer BC | LOC: CPPFTMAIN 15:42 | PROVIDERS: ATTEND Family Medicine | DX: J43.9 Emphysema, unspecified (principal); F17.200 Nicotine dependence, unspecified, uncomplicated | CPT/HCPCS: 94060; 94726; 94729 ==

== ENCOUNTER 2024-12-04 06:21 | Day surgery (SDC) | payer BC ==
[2024-12-02 12:25] VITALS: BMI 35.6
[2024-12-04] MEDS: IV FLUID CONTINUATION 1,000 ML IV ONE (06:56)
[2024-12-04] MEDS ORDERED: SODIUM CHLORIDE 0.9% 1,000 ML IV SCH (07:00)
[2024-12-04 07:03] LABS: Glucose,Whole Blood 98 mg/dL (70-110)
[2024-12-04 07:26] LABS: African American GFR (CKD) >90 (>60 ml/min/1.73 sqM); Anion Gap 6 mmol/L; Blood Urea Nitrogen 24 mg/dL (9-20); Calcium 8.8 mg/dL (8.4-10.2); Carbon Dioxide 22 mmol/L (22-30); Chloride 107 mmol/L (98-107); Glucose 103 mg/dL (74-99); Non-African American GFR(CKD) 84 (>60 ml/min/1.73 sqM); Potassium 4.7 mmol/L (3.5-5.1); Sodium 135 mmol/L (137-145)
[2024-12-04] MEDS ORDERED: PROPOFOL 10 MG/ML 20 ML VIAL IV ONE (07:30)
--- NOTE | 2024-12-04 07:54 | P.PCN ---
Date of Procedure: 12/04/24 Operative Findings: Cardioversion Report Performing physician Omer Melendez M.D. Procedure performed Successful cardioversion of atrial fibrillation to normal sinus mechanism using 200 J at third attempt Indication Symptomatic atrial fibrillation Complication None Level of sedation The procedure was performed under deep sedation using propofol with [employer]ER in the room Procedure description After obtaining an informed consent the patient was brought to the recovery room. Sedation was introduced using propofol with PR[employer]ER in the room. Subsequently the patient cardioverted from atrial fibrillation to normal sinus mechanism using 200 J and first attempt Conclusion Successful cardioversion of atrial fibrillation to normal sinus mechanism using 200 J Postprocedure management Continue the current medical regimen Continue oral anticoagulation Follow-up with the patient
[2024-12-04 08:13] VITALS: TEMP 96.9
[2024-12-04 09:22] VITALS: BP 98/63; PULSE 69; RESP 18
== END 2024-12-04 09:27 | disposition home or self-care (01) ==
LOC: OR 06:21
PROVIDERS: ATTEND Internal Medicine Interventional Cardiology
DX: I48.0 Paroxysmal atrial fibrillation (principal); I25.10 Atherosclerotic heart disease of native coronary artery without angina pectoris; Z95.5 Presence of coronary angioplasty implant and graft; I10 Essential (primary) hypertension; E78.5 Hyperlipidemia, unspecified; Z79.82 Long term (current) use of aspirin; Z79.01 Long term (current) use of anticoagulants; Z79.51 Long term (current) use of inhaled steroids; I65.23 Occlusion and stenosis of bilateral carotid arteries
CPT/HCPCS: 92960; 80048; J2704

== ENCOUNTER 2024-12-13 02:46 | Emergency (ER) | payer BC ==
[2024-12-13 03:00] VITALS: TEMP 97.5
[2024-12-13 03:35] LABS: Basophils # (A) 0.1 k/uL (0-0.2); Basophils % (A) 1 %; Eosinophils # (A) 0.3 k/uL (0-0.7); Eosinophils % (A) 4 %; HCT 51.6 % (39.0-53.0); HGB 16.7 gm/dL (13.0-17.5); Lymphocytes % (A) 39 %; MCH 31.3 pg (25.0-35.0); MCHC 32.3 g/dL (31.0-37.0); MCV 96.9 fL (80.0-100.0); Mean Platelet Volume 8.5; Monocytes # (A) 0.9 k/uL (0-1.0); Monocytes % (A) 11 %; Neutrophils # (A) 3.3 k/uL (1.3-7.7); Neutrophils % (A) 42 %; Platelet Count 205 k/uL (150-450); RBC 5.32 m/uL (4.30-5.90); RDW 13.5 % (11.5-15.5); WBC 7.7 k/uL (3.8-10.6)
--- NOTE | 2024-12-13 03:40 | ED ---
General Adult HPI - General Chief complaint: Chest Pain Stated complaint: chest pain Time Seen by Provider: 12/13/24 03:18 Source: patient, RN notes reviewed, old records reviewed Mode of arrival: ambulatory Limitations: no limitations - History of Present Illness Initial comments: Is a 54-year-old male with past medical history markable for atrial fibrillation, CAD with cardiac stents, hypertension. Patient is on blood thinners. Presents emergency department complaining of chest pain. Awoke at approximately 2 AM and began experiencing chest and upper abdominal pain. States it somewhat radiates to the back. Denies any nausea or vomiting with it. Denies any radiation to the neck or the arm. Denies any diaphoretic episodes. Did not take anything for the pain at home. Presents for further evaluation at this time. Follows up with Dr. Lujan.Patient did have a recent cardioversion with Dr. Lujan. This was done on December 04, 2024 - Related Data Home Medications Medication Instructions Recorded Confirmed Albuterol Inhaler [Ventolin Hfa 1 puff INHALATION RT-TID PRN 10/22/24 12/02/24 Inhaler] Albuterol Nebulized [Ventolin 2.5 mg INHALATION RT-TID PRN 10/22/24 12/02/24 Nebulized] Dabigatran Etexilate Mesylate 150 mg PO BID 12/02/24 12/02/24 [Dabigatran Etexilate] Previous Rx's Medication Instructions Recorded Aspirin 81 mg PO DAILY #0 chew 07/20/18 Dapagliflozin Propanediol [Farxiga] 10 mg PO DAILY #30 tab 10/25/24 Furosemide [Lasix] 20 mg PO DAILY #30 tab 10/25/24 Metoprolol Succinate (ER) [Toprol 50 mg PO DAILY #30 tab 10/25/24 XL] Sacubitril/Valsartan [Entresto 24 1 each PO BID #60 tab 10/25/24 mg-26 mg Tablet] Allergies Allergy/AdvReac Type Severity Reaction Status Date / Time No Known Allergies Allergy Verified 12/13/24 03:00 Review of Systems ROS Statement: Those systems with pertinent positive or pertinent negative responses have been documented in the HPI. Review of Systems: CONST: Denies fever EYES: Denies blurry vision ENT: Denies nasal congestion C/V: Endorses chest pain RESP: Denies shortness of breath GI: Denies abdominal pain : Denies dysuria SKIN: Denies rash. MSK: Denies joint pain. NEURO: Denies headache ROS Other: All systems not noted in ROS Statement are negative. Past Medical History Past Medical History: Atrial Fibrillation, Coronary Artery Disease (CAD), Hearing Disorder / Deafness, Hypertension, Myocardial Infarction (VT) Additional Past Medical History / Comment(s): Back pain, mild hearing loss, varicose veins. Last Myocardial Infarction Date:: 07/2018 History of Any Multi-Drug Resistant Organisms: None Reported Past Surgical History: Heart Catheterization, Heart Catheterization With Stent Additional Past Surgical History / Comment(s): Cardiac catheterization post VT insertion of a coronary stent in the LAD Past Anesthesia/Blood Transfusion Reactions: No Reported Reaction Date of Last Stent Placement:: Jul 18 2018 Past Psychological History: No Psychological Hx Reported Smoking Status: Current every day smoker Past Alcohol Use History: Occasional Past Drug Use History: None Reported - Past Family History Father Family Medical History: Chest Pain / Angina, Coronary Artery Disease (CAD) General Exam - General Exam Comments Initial Comments: General: Appears in no acute distress. HEAD: Normal with no signs of head trauma. EYES: EOMI ENT: Normal oropharynx RESPIRATORY: Clear breath sounds bilaterally. No wheezes, rales, or rhonchi. C/V: Regular rate and rhythm. S1 and S2 auscultated, no edema, peripheral pulses 2+ and intact throughout ABD: Abd is soft, nontender, nondistended EXT: Normal range of motion, no obvious deformity. No reproducible pain on palpation. SKIN: No rashes or lesions observed on exposed skin. NEURO: Alert and oriented x 4. Limitations: no limitations Course Vital Signs 12/13/24 12/13/24 12/13/24 02:58 03:49 04:15 Temperature 97.5 F L Pulse Rate 60 67 63 Respiratory 18 17 18 Rate Blood Pressure 151/102 127/90 118/87 O2 Sat by Pulse 96 94 L 96 Oximetry 12/13/24 05:55 Temperature Pulse Rate 72 Respiratory 17 Rate Blood Pressure 129/88 O2 Sat by Pulse 95 Oximetry Medical Decision Making - Medical Decision Making Was pt. sent in by a medical professional or institution (, PA, ANESTHESIOLOGIST PHYSICIAN, urgent care, hospital, or senior living...) When possible be specific @ -No Did you speak to anyone other than the patient for history (EMS, parent, family, police, friend...)? What history was obtained from this source @ -No Did you review nursing and triage notes (agree or disagree)? Why? @ -I reviewed and agree with nursing and triage notes Were old charts reviewed (outside hosp., previous admission, EMS record, old EKG, old radiological studies, urgent care reports/EKG's, senior living records)? Report findings @ -Reviewed old charts, including EKG from December 07, 2024. No significant change when compared with today's. Differential Diagnosis (chest pain, altered mental status, abdominal pain women, abdominal pain men, vaginal bleeding, weakness, fever, dyspnea, syncope, headache, dizziness, GI bleed, back pain, seizure, CVA, palpatations, mental health, musculoskeletal)? @ -Differential Chest Pain: Stable Angina, Unstable Angina, STEMI, NSTEMI Aortic Dissection, Pneumothorax, Musculoskeletal, Esophageal Spasm GERD, Cholecystitis, Pancreatitis, Zoster, this is not meant to be an all-inclusive list. EKG interpreted by me (3pts min.). @ -As above X-rays interpreted by me (1pt min.). @ -Chest x-ray reveals no obvious acute cardiopulmonary process. CT interpreted by me (1pt min.). @ -CT angiogram returned remarkable for left adrenal hemorrhage likely from mass or hematoma on the left adrenal gland. Subadjacent retroperitoneal hemorrhage is present as well. U/S interpreted by me (1pt. min.). @ -None done What testing was considered but not performed or refused? (CT, X-rays, U/S, labs)? Why? @ -None What meds were considered but not given or refused? Why? @ -None Did you discuss the management of the patient with other professionals (professionals i.e. , PA, ANESTHESIOLOGIST PHYSICIAN, lab, RT, psych nurse, aids social worker, cat wagon operator, te acher, associate loan officer, major case detective)? Give summary @ -Discussed with oil heater installer, Dr. Lujan. Discussed recent cardiac workup including relatively clean cardiac cath, as well as recent cardioversion for A- fib. We are in agreement that we are uncertain what may be causing the current pain, and ACS seems less likely. We will obtain CT angiogram of the chest abdomen pelvis. Blood thinning medication will be held at this time. This includes patient's Pradaxa. He was in agreement this plan. He was also updated on the results of the CT imaging and was in agreement with the anticoagulation reversal. I spoke with the on-call surgeon, Dr. Guardado who recommended transfer as we do not have interventional radiology available at our facility and patient requires evaluation for possible embolization. Discussed with the transferring provider at [facility], Dr. Clark who accepted the transfer. Was smoking cessation discussed for >3mins.? @ -No Was critical care preformed (if so, how long)? @ -Yes, 48 minutes Were there social determinants of health that impacted care today? How? (Home lessness, low income, unemployed, alcoholism, drug addiction, transportation, low edu. Level, literacy, decrease access to med. care, halfway, rehab)? @ -No Was there de-escalation of care discussed even if they declined (Discuss DNR or withdrawal of care, Hospice)? DNR status @ -No What co-morbidities impacted this encounter? (DM, HTN, Smoking, COPD, CAD, Cancer, CVA, ARF, Chemo, Hep., AIDS, mental health diagnosis, sleep apnea, morbid obesity)? @ -CAD, atrial fibrillation Was patient admitted / discharged? Hospital course, mention meds given and route, prescriptions, significant lab abnormalities, going to OR and other pertinent info. @ -Patient presents with chest pain. Started this evening. Will obtain cardiac workup. Patient will be given 324 mg of aspirin, nitro, fluids. He was in agreement this plan. Vital signs within acceptable limits. EKG shows no signs of acute ischemia.Patient's laboratory studies returned remarkable for undetectable troponin. Remainder the labs unremarkable. EKGs x 2 unremarkable with no obvious dynamic changes. Compared to the EKG from December 04, 2024. Chest x-ray unremarkable. On reevaluation, patient is still experiencing pain. Nitro had no effect on the pain. Patient given IV morphine at this time. I did speak with patient's oil heater installer, Dr. Melendez and reviewed the patient's current presentation as well as recent workup which includes cardiac catheterization. We both discussed that in the event of the unremarkable cardiac workup, we will obtain a CT angiogram to evaluate aorta for possible PE. Patient was in agreement this plan. Patient administered IV Dilaudid. Patient remains hemodynamically stable. CT angiogram shows no evidence of aortic injury or PE however patient does have a left adrenal hemorrhage with mass within the left adrenal gland with subadjacent retroperitoneal hemorrhage. Reversal agent for the patient's Pradaxa, Praxbind was ordered. Patient administered additional analgesia medications. Will continue on IV fluids. No further reversal agents indicated as patient was not initiated on heparin. I discussed the case with the on-call surgeon, Dr. Guardado who recommended transfer for interventional radiology evaluation and we do not have interventional radiology available at our facility on the weekends. I updated the patient. Request transfer to [facility]. Patient will be transferred to [facility]. I spoke with their transfer line and accepting physician in the ER at that facility is Dr. Clark. Patient will be transferred in serious condition. Undiagnosed new problem with uncertain prognosis? @ -No Drug Therapy requiring intensive monitoring for toxicity (Heparin, Nitro, Insulin, Cardizem)? @ -No Were any procedures done? @ -No Diagnosis/symptom? @ -Retroperitoneal bleed, secondary to left adrenal hemorrhage. Atraumatic. Acute, or Chronic, or Acute on Chronic? @ -Acute Uncomplicated (without systemic symptoms) or Complicated (systemic symptoms)? @ -Complicated Side effects of treatment? @ -None Exacerbation, Progression, or Severe Exacerbation] @ -No Poses a threat to life or bodily function? @ -Yes - Lab Data Result diagrams: 12/13/24 03:22 12/13/24 03:22 Lab Results 12/13/24 12/13/24 12/13/24 Range/Units 03:22 03:22 03:22 WBC 7.7 (3.8-10.6) k/uL RBC 5.32 (4.30-5.90) m/uL Hgb 16.7 (13.0-17.5) gm/dL Hct 51.6 (39.0-53.0) % MCV 96.9 (80.0-100.0) fL MCH 31.3 (25.0-35.0) pg MCHC 32.3 (31.0-37.0) g/dL RDW 13.5 (11.5-15.5) % Plt Count 205 (150-450) k/uL MPV 8.5 Neutrophils % 42 % Lymphocytes % 39 % Monocytes % 11 % Eosinophils % 4 % Basophils % 1 % Neutrophils # 3.3 (1.3-7.7) k/uL Lymphocytes # 3.0 (1.0-4.8) k/uL Monocytes # 0.9 (0-1.0) k/uL Eosinophils # 0.3 (0-0.7) k/uL Basophils # 0.1 (0-0.2) k/uL PT 11.2 (10.0-12.5) sec INR 1.0 (<1.2) APTT 27.8 (22.0-30.0) sec Sodium 133 L (137-145) mmol/L Potassium 4.5 (3.5-5.1) mmol/L Chloride 107 (98-107) mmol/L Carbon Dioxide 20 L (22-30) mmol/L Anion Gap 6 mmol/L BUN 27 H (9-20) mg/dL Creatinine 0.93 (0.66-1.25) mg/dL Est GFR (CKD-EPI)AfAm >90 (>60 ml/min/1.73 sqM) Est GFR (CKD-EPI)NonAf >90 (>60 ml/min/1.73 sqM) Glucose 111 H (74-99) mg/dL Calcium 9.3 (8.4-10.2) mg/dL Magnesium 2.1 (1.6-2.3) mg/dL Total Bilirubin 0.7 (0.2-1.3) mg/dL AST 26 (17-59) U/L ALT 26 (4-49) U/L Alkaline Phosphatase 88 (38-126) U/L Troponin I (0.000-0.034) ng/mL NT-Pro-B Natriuret Pep <20 pg/mL Total Protein 6.3 (6.3-8.2) g/dL Albumin 3.8 (3.5-5.0) g/dL Lipase 87 (23-300) U/L 12/13/ Range/Units 03:22 WBC (3.8-10.6) k/uL RBC (4.30-5.90) m/uL Hgb (13.0-17.5) gm/dL Hct (39.0-53.0) % MCV (80.0-100.0) fL MCH (25.0-35.0) pg MCHC (31.0-37.0) g/dL RDW (11.5-15.5) % Plt Count (150-450) k/uL MPV Neutrophils % % Lymphocytes % % Monocytes % % Eosinophils % % Basophils % % Neutrophils # (1.3-7.7) k/uL Lymphocytes # (1.0-4.8) k/uL Monocytes # (0-1.0) k/uL Eosinophils # (0-0.7) k/uL Basophils # (0-0.2) k/uL PT (10.0-12.5) sec INR (<1.2) APTT (22.0-30.0) sec Sodium (137-145) mmol/L Potassium (3.5-5.1) mmol/L Chloride (98-107) mmol/L Carbon Dioxide (22-30) mmol/L Anion Gap mmol/L BUN (9-20) mg/dL Creatinine (0.66-1.25) mg/dL Est GFR (CKD-EPI)AfAm (>60 ml/min/1.73 sqM) Est GFR (CKD-EPI)NonAf (>60 ml/min/1.73 sqM) Glucose (74-99) mg/dL Calcium (8.4-10.2) mg/dL Magnesium (1.6-2.3) mg/dL Total Bilirubin (0.2-1.3) mg/dL AST (17-59) U/L ALT (4-49) U/L Alkaline Phosphatase (38-126) U/L Troponin I <0.012 (0.000-0.034) ng/mL NT-Pro-B Natriuret Pep pg/mL Total Protein (6.3-8.2) g/dL Albumin (3.5-5.0) g/dL Lipase (23-300) U/L - EKG Data -: EKG Interpreted by Me EKG Comments: 12-lead Electrocardiogram Interpretation Note EKG was reviewed and interpreted by myself. 12-lead ECG performed at 0308 is interpreted by me as revealing normal sinus rhythm at a rate of 61 beats per minute. [place] is normal. VT interval is 174 ms, QRS durations 100 ms, QTc is 378 ms.. There were no ST or T wave abnormalities to suggest myocardial ischemia or injury. R wave progression across the precordium was satisfactory. By my interpretation this EKG is non-diagnostic for acute ischemia. Disposition Clinical Impression: Adrenal hemorrhage, Retroperitoneal bleeding Disposition: OTHER INSTITUTION NOT DEFINED Condition: Serious Referrals: Davi Cummins DO [Primary Care Provider] - 1-2 days Time of Disposition: 06:45 - Out of Hospital Transfer - Req. Specs Out of Hospital Transfer - Requested Specifics: Other Emergency Center (Accepting physician is Dr. Clark at [facility]. Transferring for escalation of care for IR evaluation for retroperitoneal bleed secondary to left adrenal hemorrhage.)
[2024-12-13 03:41] LABS: ALT 26 U/L (4-49); AST 26 U/L (17-59); African American GFR (CKD) >90 (>60 ml/min/1.73 sqM); Albumin 3.8 g/dL (3.5-5.0); Alkaline Phosphatase 88 U/L (38-126); Anion Gap 6 mmol/L; Blood Urea Nitrogen 27 mg/dL (9-20); Calcium 9.3 mg/dL (8.4-10.2); Carbon Dioxide 20 mmol/L (22-30); Chloride 107 mmol/L (98-107); Glucose 111 mg/dL (74-99); Lipase 87 U/L (23-300); Magnesium 2.1 mg/dL (1.6-2.3); Non-African American GFR(CKD) >90 (>60 ml/min/1.73 sqM); Potassium 4.5 mmol/L (3.5-5.1); Sodium 133 mmol/L (137-145); Total Bilirubin 0.7 mg/dL (0.2-1.3); Total Protein 6.3 g/dL (6.3-8.2)
[2024-12-13] MEDS: NITROGLYCERIN SL TABS 0.4 MG TAB SUBLINGUAL STA ×2 (03:44→04:04)
[2024-12-13] MEDS: SODIUM CHLORIDE 0.9% 1,000 ML IV STA ×2 (03:44→05:08)
[2024-12-13] MEDS: ASPIRIN 81 MG PO STA (03:48)
[2024-12-13 03:49] LABS: NT-Pro-B-Type Natriuretic Pept <20 pg/mL
[2024-12-13 04:04] LABS: Partial Thromboplastin Time 27.8 sec (22.0-30.0); Prothrombin Time 11.2 sec (10.0-12.5)
--- NOTE | 2024-12-13 04:15 | XR ---
EXAM: XR Chest, 2 Views CLINICAL HISTORY: ITS.REASON XR Reason: Chest Pain TECHNIQUE: Frontal and lateral views of the chest. COMPARISON: None FINDINGS: Hardware: None. Lungs/pleura: Mild lower lung opacities likely represent atelectasis. No other focal consolidation. No pleural effusion or pneumothorax. Heart/mediastinum: Normal. No cardiomegaly. Soft tissues: Unremarkable. Bones: No acute fracture. Upper abdomen: Normal. IMPRESSION: Mild lower lung opacities likely represent atelectasis. No other focal consolidation.
[2024-12-13] MEDS: MORPHINE SULFATE 4 MG/ML SYRINGE IVP STA ×2 (04:18→04:55)
[2024-12-13] MEDS: ONDANSETRON 4 MG/2 ML VIAL IVP STA (04:19)
[2024-12-13] MEDS: PANTOPRAZOLE 40 MG/10 ML VIAL IVP STA (04:21)
[2024-12-13] MEDS ORDERED: HEPARIN SODIUM 1,000 UN/ML (10ML VL) IV PRN (04:32)
[2024-12-13] MEDS ORDERED: HEPARIN SOD,PORK IN 0.45% NACL 25,000 UNIT in 0.45% NACL 1 250ML.BAG IV SCH (04:45)
[2024-12-13] MEDS: HEPARIN SODIUM 1,000 UN/ML (10ML VL) IV ONE (04:51)
[2024-12-13] MEDS: HYDROmorphone 0.5 MG/0.5 ML SYRINGE IVP STA ×2 (05:53→06:49)
[2024-12-13 05:55] VITALS: RESP 17
--- NOTE | 2024-12-13 06:12 | CT ---
EXAM: CT Angiography Chest, Abdomen and Pelvis Without and With Intravenous Contrast CLINICAL HISTORY: ITS.REASON CT Reason: chest pain TECHNIQUE: Axial computed tomographic angiography images of the chest, abdomen and pelvis without and with intravenous contrast. CTDI is 62.1 mGy and DLP is 2391.8 mGy-cm. This CT exam was performed using one or more of the following dose reduction techniques: automated exposure control, adjustment of the mA and/or kV according to patient size, and/or use of iterative reconstruction technique. MIP reconstructed images were created and reviewed. COMPARISON: No relevant prior studies available. FINDINGS: VASCULATURE: Aorta: Bolus timing mildly limits evaluation. Despite this, no evidence of aortic aneurysm or dissection along the aorta or subsequent branches. Pulmonary arteries: Unremarkable as visualized. No pulmonary embolism is identified. Great vessels of aortic arch: No acute findings. No dissection. No arterial occlusion or significant stenosis. Celiac trunk and mesenteric arteries: No acute findings. No occlusion or significant stenosis. Renal arteries: No acute findings. No occlusion or significant stenosis. Iliac arteries: No acute findings. No occlusion or significant stenosis. CHEST: Lungs: Unremarkable. No mass. No consolidation. Pleural space: Unremarkable. No significant effusion. No pneumothorax. Heart: Unremarkable. No cardiomegaly. No significant pericardial effusion. ABDOMEN: Liver: Unremarkable. No mass. Gallbladder and bile ducts: Unremarkable. No calcified stones. No ductal dilation. Pancreas: Unremarkable. No ductal dilation. No mass. Spleen: Unremarkable. No splenomegaly. Adrenals: Findings suspicious for left adrenal hemorrhage with mass within the left adrenal gland measuring up to 3.5 cm which may relate to developing hematoma. Subjacent retroperitoneal hemorrhage noted. Consider follow-up imaging. Kidneys and ureters: No renal injury detected. No obstructing stones. No hydronephrosis. Stomach and bowel: No evidence of bowel obstruction. No mucosal thickening. PELVIS: Appendix: Normal appendix. Bladder: Unremarkable. No stones. No mass. Reproductive: Unremarkable as visualized. CHEST, ABDOMEN and PELVIS: Intraperitoneal space: Unremarkable. No significant fluid collection. No free air. Bones/joints: No evidence of rib fracture detected. No dislocation. Soft tissues: Unremarkable. Lymph nodes: Unremarkable. No enlarged lymph nodes. IMPRESSION: 1. Findings suspicious for left adrenal hemorrhage with mass within the left adrenal gland measuring up to 3.5 cm which may relate to developing hematoma. Subjacent retroperitoneal hemorrhage noted. Consider follow- up imaging. 2. No evidence of rib fracture detected. 3. No renal injury detected. 4. Bolus timing mildly limits evaluation. Despite this, no evidence of aortic aneurysm or dissection along the aorta or subsequent branches. 5. No other acute findings. 6. Incidental findings as described. <MYCVCSECTION> Communications: 12/13/24 06:13 Call Doctor Regarding Above results, called Dr. Mancilla on 12/13 06:13 (-04:00)
[2024-12-13] MEDS ORDERED: Kcentra / Balfaxar PER PHARMACY 1 EACH MISC MISCELLANE PRN (06:15)
[2024-12-13] MEDS: IDARUCIZUMAB 2.5 GM in EMPTY BAG 1 BAG IV SCH (06:34)
--- NOTE | 2024-12-13 06:47 | ED ---
Medical Decision Making - Lab Data Result diagrams: 12/13/24 03:22 12/13/24 03:22 Lab Results 12/13/24 12/13/24 12/13/24 Range/Units 03:22 03:22 03:22 WBC 7.7 (3.8-10.6) k/uL RBC 5.32 (4.30-5.90) m/uL Hgb 16.7 (13.0-17.5) gm/dL Hct 51.6 (39.0-53.0) % MCV 96.9 (80.0-100.0) fL MCH 31.3 (25.0-35.0) pg MCHC 32.3 (31.0-37.0) g/dL RDW 13.5 (11.5-15.5) % Plt Count 205 (150-450) k/uL MPV 8.5 Neutrophils % 42 % Lymphocytes % 39 % Monocytes % 11 % Eosinophils % 4 % Basophils % 1 % Neutrophils # 3.3 (1.3-7.7) k/uL Lymphocytes # 3.0 (1.0-4.8) k/uL Monocytes # 0.9 (0-1.0) k/uL Eosinophils # 0.3 (0-0.7) k/uL Basophils # 0.1 (0-0.2) k/uL PT 11.2 (10.0-12.5) sec INR 1.0 (<1.2) APTT 27.8 (22.0-30.0) sec Sodium 133 L (137-145) mmol/L Potassium 4.5 (3.5-5.1) mmol/L Chloride 107 (98-107) mmol/L Carbon Dioxide 20 L (22-30) mmol/L Anion Gap 6 mmol/L BUN 27 H (9-20) mg/dL Creatinine 0.93 (0.66-1.25) mg/dL Est GFR (CKD-EPI)AfAm >90 (>60 ml/min/1.73 sqM) Est GFR (CKD-EPI)NonAf >90 (>60 ml/min/1.73 sqM) Glucose 111 H (74-99) mg/dL Calcium 9.3 (8.4-10.2) mg/dL Magnesium 2.1 (1.6-2.3) mg/dL Total Bilirubin 0.7 (0.2-1.3) mg/dL AST 26 (17-59) U/L ALT 26 (4-49) U/L Alkaline Phosphatase 88 (38-126) U/L Troponin I (0.000-0.034) ng/mL NT-Pro-B Natriuret Pep <20 pg/mL Total Protein 6.3 (6.3-8.2) g/dL Albumin 3.8 (3.5-5.0) g/dL Lipase 87 (23-300) U/L //25 Range/Units 03:22 WBC (3.8-10.6) k/uL RBC (4.30-5.90) m/uL Hgb (13.0-17.5) gm/dL Hct (39.0-53.0) % MCV (80.0-100.0) fL MCH (25.0-35.0) pg MCHC (31.0-37.0) g/dL RDW (11.5-15.5) % Plt Count (150-450) k/uL MPV Neutrophils % % Lymphocytes % % Monocytes % % Eosinophils % % Basophils % % Neutrophils # (1.3-7.7) k/uL Lymphocytes # (1.0-4.8) k/uL Monocytes # (0-1.0) k/uL Eosinophils # (0-0.7) k/uL Basophils # (0-0.2) k/uL PT (10.0-12.5) sec INR (<1.2) APTT (22.0-30.0) sec Sodium (137-145) mmol/L Potassium (3.5-5.1) mmol/L Chloride (98-107) mmol/L Carbon Dioxide (22-30) mmol/L Anion Gap mmol/L BUN (9-20) mg/dL Creatinine (0.66-1.25) mg/dL Est GFR (CKD-EPI)AfAm (>60 ml/min/1.73 sqM) Est GFR (CKD-EPI)NonAf (>60 ml/min/1.73 sqM) Glucose (74-99) mg/dL Calcium (8.4-10.2) mg/dL Magnesium (1.6-2.3) mg/dL Total Bilirubin (0.2-1.3) mg/dL AST (17-59) U/L ALT (4-49) U/L Alkaline Phosphatase (38-126) U/L Troponin I <0.012 (0.000-0.034) ng/mL NT-Pro-B Natriuret Pep pg/mL Total Protein (6.3-8.2) g/dL Albumin (3.5-5.0) g/dL Lipase (23-300) U/L Critical Care Time Critical Care Time: Yes Total Critical Care Time: 48 Disposition Clinical Impression: Adrenal hemorrhage, Retroperitoneal bleeding Disposition: OTHER INSTITUTION NOT DEFINED Condition: Serious Referrals: Davi Cummins DO [Primary Care Provider] - 1-2 days - Out of Hospital Transfer - Req. Specs Out of Hospital Transfer - Requested Specifics: Other Emergency Center (Transfer to [facility] for escalation of care.)
[2024-12-13 06:58] VITALS: BP 129/92; PULSE 77
== END 2024-12-13 06:57 | disposition other institution (70) ==
LOC: EC 02:46
DX: K68.3 Retroperitoneal hematoma (principal); E27.49 Other adrenocortical insufficiency; I25.10 Atherosclerotic heart disease of native coronary artery without angina pectoris; I48.91 Unspecified atrial fibrillation; F17.200 Nicotine dependence, unspecified, uncomplicated
CPT/HCPCS: 36415; 93005; 83880; 80053; 83690; 83735; 84484; 85025; 85610; 85730; 71046; 71275; 74174; 99285; 96365; 96375; 96376 ×2; 96361; J2270; J2405; C9399; J1171; Q9967; J2470

== ENCOUNTER 2025-03-24 06:22 | Day surgery (SDC) | payer BC ==
[~2025-03-24 06:22] MED LIST: SODIUM CHLORIDE 0.9% 500 ML 500 ML IV SCH
[2025-03-24] MEDS: SODIUM CHLORIDE 0.9% 500 ML 500 ML IV ONE (07:00)
[2025-03-24 07:03] VITALS: TEMP 97.3
[2025-03-24 07:12] LABS: Glucose,Whole Blood 94 mg/dL (70-110)
[2025-03-24 07:30] LABS: African American GFR (CKD) >90 (>60 ml/min/1.73 sqM); Anion Gap 11 mmol/L; Blood Urea Nitrogen 28 mg/dL (9-20); Calcium 8.8 mg/dL (8.4-10.2); Carbon Dioxide 20 mmol/L (22-30); Chloride 108 mmol/L (98-107); Glucose 99 mg/dL (74-99); Non-African American GFR(CKD) >90 (>60 ml/min/1.73 sqM); Potassium 4.4 mmol/L (3.5-5.1); Sodium 139 mmol/L (137-145)
[2025-03-24] MEDS ORDERED: PROPOFOL 10 MG/ML 20 ML VIAL IV ONE (10:31)
[2025-03-24] MEDS ORDERED: LIDOCAINE 1% INJ 10MG/ML (20 ML MDV) ONE (10:31)
[2025-03-24 11:55] VITALS: RESP 16
[2025-03-24 12:03] VITALS: BP 114/85; PULSE 71
--- NOTE | 2025-03-25 06:54 | P.PCN ---
Date of Procedure: 03/25/25 Operative Findings: Cardioversion report Performing physician Omer schmidt MD Procedure performed Successful cardioversion of atrial fibrillation to normal sinus mechanism using 200 J at second attempt Indication Symptomatic atrial fibrillation Procedure description The patient was on anticoagulation for paroxysmal atrial fibrillation for the last several months. The patient sedated using propofol with SCHOOL TRAFFIC SUPERVISOR in the room. Subsequently the patient was cardioverted to normal sinus mechanism from atrial fibrillation using 200 J and second attempt. Postprocedure management Continue anticoagulation Follow-up with the patient
== END 2025-03-24 12:35 | disposition home or self-care (01) ==
LOC: OR 06:22
PROVIDERS: ATTEND Internal Medicine Interventional Cardiology
DX: I48.0 Paroxysmal atrial fibrillation (principal); I25.10 Atherosclerotic heart disease of native coronary artery without angina pectoris; E78.5 Hyperlipidemia, unspecified; I42.8 Other cardiomyopathies; I65.23 Occlusion and stenosis of bilateral carotid arteries; I77.819 Aortic ectasia, unspecified site; I10 Essential (primary) hypertension; Z79.899 Other long term (current) drug therapy
CPT/HCPCS: 92960; 80048; J2003; J2704

== ENCOUNTER → 2025-04-12 | Outpatient (CLI) | payer BC ==
--- NOTE | 2025-04-13 07:38 | CT ---
EXAMINATION TYPE: CT adrenal glands wo/w con CT DLP: 9.60 mGycm, Automated exposure control for dose reduction was used. DATE OF EXAM: 04/12/2025 4:50 PM COMPARISON: CTA thoracic and abdominal pelvis aorta 12/13/2024 CLINICAL INDICATION:Male, 54 years old with history of R19.09 INTRA ABD AND PEL SWELL MASS AND LUMP; INTRA ABD AND PELVIS SWELLING, MASS AND LUMP TECHNIQUE: Multiphase CT of the abdomen before and after the uneventful administration of 100 mL of Isovue-370 intravenously. Oral contrast was administered. Coronal and sagittal reformats were perform ed. FINDINGS: LOWER CHEST: Visualized lung bases are clear. Prominent xiphoid process. ABDOMEN LIVER: Unremarkable GALLBLADDER AND BILE DUCTS: Unremarkable. PANCREAS: Unremarkable. SPLEEN: Unremarkable. ADRENAL GLANDS: Right adrenal gland is unremarkable. Resolution of previously demonstrated left peria drenal hyperdense fluid with decreased size of left adrenal gland lesion. Left adrenal gland 2.2 cm h eterogenous lesion with a Hounsfield unit of 16 on noncontrast imaging. Demonstrates Hounsfield unit of 18 on portal venous phase imaging. Demonstrates a Hounsfield unit of 20 on delayed imaging. Puncta te calcification identified within the lesion. Absolute washout of 2%. Relative washout -11.1%. KIDNEYS AND URETERS: No evidence of hydronephrosis or renal calculus. The kidneys enhance symmetrical ly. Contrast demonstrate within both collecting systems and proximal ureters on the delayed phase. Re troaortic left renal vein. STOMACH AND BOWEL: Stomach and duodenum are unremarkable. Enteric contrast reaches the mid small tyson l. The appendix is within normal limits. No bowel wall thickening or surrounding inflammatory changes . No evidence of bowel obstruction. PERITONEUM: No evidence of pneumoperitoneum or free fluid. VASCULATURE: No evidence of aortic aneurysm. MUSCULOSKELETAL: No acute osseous abnormalities. Multilevel degenerative disc disease. Most prominent at L5-S1. LYMPH NODES: No evidence for lymphadenopathy. SOFT TISSUE/ABDOMINAL WALL: Unremarkable IMPRESSION: Resolution of left periadrenal gland hemorrhage with decreased size of now 2.2 cm left adrenal gland lesion. This lesion is indeterminate based on washout calculation. May represent an adenoma versus ot her etiologies such as a pheochromocytoma. Further workup is recommended. [facility], , 04/13/2025 7:36 AM
== END | disposition home or self-care (01) ==
LOC: RADCTMAIN 15:17
PROVIDERS: ATTEND Family Medicine
DX: R19.09 Other intra-abdominal and pelvic swelling, mass and lump (principal)
CPT/HCPCS: 74170; Q9967